=== PATIENT | male | born 1960 | race Caucasian/White ===

== ENCOUNTER 2022-07-13 12:51 | Emergency (ER) | payer OTHER ==
[~2022-07-13] VITALS: Ht 180.3 cm; Wt 126.1 kg
[2022-07-13] MEDS ORDERED: ARIPIPRAZOLE2 MG (13:15)
[2022-07-13] MEDS ORDERED: RESTORIL15 MG (13:15)
[2022-07-13] MEDS ORDERED: CILOSTAZOL50 MG (13:15)
[2022-07-13] MEDS ORDERED: FINASTERIDE5 MG (13:16)
[2022-07-13] MEDS ORDERED: FLUOXETINE HCL10 MG (13:16)
[2022-07-13] MEDS ORDERED: TAMSULOSIN HCL0.4 MG (13:16)
== END 2022-07-13 18:06 | disposition home or self-care (01) ==
LOC: ER 12:51
DX: S70.02XA Contusion of left hip, initial encounter (principal); S70.01XA Contusion of right hip, initial encounter; S30.0XXA Contusion of lower back and pelvis, initial encounter; W18.30XA Fall on same level, unspecified, initial encounter; Y93.89 Activity, other specified; Y92.012 Bathroom of single-family (private) house as the place of occurrence of the external cause; Y99.9 Unspecified external cause status; I10 Essential (primary) hypertension